=== PATIENT | female | born 1940 | race Caucasian/White ===

== ENCOUNTER 2020-11-20 13:57 | Inpatient (IN) | payer MEDICARE ==
[~2020-11-20 13:57] MED LIST: Iopamidol-370 76% 500 ML 1 ML ONE
[2020-11-20 14:56] LABS: Hemoglobin 10.8 g/dL (12.0-16.0); Mean Corpuscular HGB CONC 34.1 g/dL (32.0-36.0); Mean Corpuscular Hemoglobin 31.8 pg (27.0-31.0); Mean Corpuscular Volume 93.1 fL (78.0-98.0); Mean Platelet Volume 8.4 fL (7.4-10.4); Platelet Count 157 thou/uL (130-400); RBC Distribution Width 16.2 % (11.5-14.5); White Blood Cell (WBC) Count 22.2 thou/uL (4.8-10.8)
[2020-11-20 15:17] LABS: ALT (SGPT) 7 U/L (8-55); AST (SGOT) 12 U/L (5-34); Albumin 3.5 g/dL (3.4-4.8); Alkaline Phosphatase 84 U/L (40-110); Anion Gap 17 mmol/L (10-20); BUN (Urea Nitrogen) 53 mg/dL (9.8-20.1); Bilirubin, Total 1.1 mg/dL (0.2-1.2); Calc. Creatinine Clearance 0 mL/min (70-130); Calcium 9.2 mg/dL (7.8-10.44); Carbon Dioxide 23 mmol/L (23-31); Chloride 101 mmol/L (98-107); Globulin 2.7 g/dL (2.4-3.5); Glucose 110 mg/dL (83-110); Potassium 4.4 mmol/L (3.5-5.1); Protein, Total 6.2 g/dL (5.8-8.1); Sodium 137 mmol/L (136-145)
[2020-11-20 15:21] LABS: Band 18 % (5-11); Lymphocytes 2 % (21-51); MDiff Complete? YES; Monocytes 8 % (0-10); Neutrophil 72 % (42-75); Platelet Morphology Comment Appears Adequate; Polychromasia SLIGHT = 2-3 cells (100X) (0-2/hpf)
[2020-11-20] MEDS ORDERED: Cefepime 2 GM VIAL ONE (15:38)
[2020-11-20] MEDS ORDERED: Vancomycin 1.5 GRAM/300 ML BAG 1.5 GM in Premix Bag 1 BAG IVPB SCH (18:00)
[2020-11-20] MEDS ORDERED: Acetaminophen 325 MG TAB PO PRN (20:26)
[2020-11-20] MEDS ORDERED: Ondansetron PF 4 MG/2 ML Vial IVP PRN (20:26)
[2020-11-21 00:04] LABS: Bilirubin Negative (Negative); Blood, Urine 2+ (Negative); Clarity Clear (Clear); Glucose, Urine (Dipstick) Normal (Negative); Ketone, Urine 10 mg/dL (Negative); Leukocyte 250 Leu/uL (Negative); Mucous/LPF Rare LPF (<2+); Nitrite Negative (Negative); Protein, Urine (Dipstick) 50 mg/dL (Neg-Trace); Urobilinogen Normal mg/dL (Less than 2); WBC/HPF 21-50 HPF (0-3)
[2020-11-21 00:07] LABS: Bacteria/HPF 1+ HPF (None Seen); Specific Gravity, Urine 1.047 (1.002-1.036)
[2020-11-21 01:49] VITALS: BMI 25.9
[2020-11-21] MEDS: Sodium Chloride 0.9% 1,000 ML IV SCH ×2 (03:12→16:14)
[2020-11-21 04:20] LABS: #Lymphocytes 0.4 thou/uL (1.20-3.40); #Monocytes 0.9 thou/uL (0.11-0.59); #Neutrophils 13.3 thou/uL (1.40-6.50); %Eosinophils 0.1 % (0.0-10.0); %Monocytes 6.2 % (0.0-10.0); %Neutrophils 90.8 % (42.0-75.0); Hemoglobin 8.4 g/dL (12.0-16.0); Mean Corpuscular HGB CONC 33.1 g/dL (32.0-36.0); Mean Corpuscular Hemoglobin 31.1 pg (27.0-31.0); Mean Corpuscular Volume 93.9 fL (78.0-98.0); Mean Platelet Volume 8.8 fL (7.4-10.4); Platelet Count 130 thou/uL (130-400); RBC Distribution Width 15.9 % (11.5-14.5); Red Blood Cell (RBC) Count 2.68 mill/uL (4.20-5.40); White Blood Cell (WBC) Count 14.7 thou/uL (4.8-10.8)
[2020-11-21 04:45] LABS: ALT (SGPT) Less than 7 U/L (8-55); AST (SGOT) 10 U/L (5-34); Albumin 2.7 g/dL (3.4-4.8); Alkaline Phosphatase 61 U/L (40-110); Anion Gap 14 mmol/L (10-20); BUN (Urea Nitrogen) 54 mg/dL (9.8-20.1); Bilirubin, Total 0.6 mg/dL (0.2-1.2); Calc. Creatinine Clearance 36 mL/min (70-130); Calcium 8.9 mg/dL (7.8-10.44); Carbon Dioxide 20 mmol/L (23-31); Chloride 106 mmol/L (98-107); Globulin 2.8 g/dL (2.4-3.5); Glucose 84 mg/dL (83-110); Potassium 3.7 mmol/L (3.5-5.1); Protein, Total 5.5 g/dL (5.8-8.1); Sodium 136 mmol/L (136-145)
[2020-11-21] MEDS ORDERED: Albuterol 200 PUFF (6.7GM INHALER) INH PRN (11:00)
[2020-11-21] MEDS ORDERED: Levothyroxine Sodium 125 MCG TAB PO SCH (11:00)
[2020-11-21] MEDS ORDERED: Non-Formulary Item 1 EACH (Levothyroxine Sodium [Synthroid] 137 MCG Tablet) PO SCH (11:00)
[2020-11-21 12:49] LABS: SARS-CoV-2 PCR by NAA Not Detected (NotDetected)
[2020-11-21] MEDS: Levothyroxine Sodium 125 MCG TAB PO SCH (12:58)
[2020-11-21] MEDS: Cefepime 1 GM in Sodium Chloride 0.9% 100 ML IVPB SCH (16:14)
[2020-11-21] MEDS: Vancomycin HCl 750 MG in Sodium Chloride 0.9% 250 ML 250 ML IVPB SCH (18:09)
[2020-11-21] MEDS ORDERED: Apixaban 5 MG TAB PO SCH (21:00)
[2020-11-22] MEDS: Sodium Chloride 0.9% 1,000 ML IV SCH (05:33)
[2020-11-22] MEDS: Levothyroxine Sodium 125 MCG TAB PO SCH (05:33)
[2020-11-22 10:53] LABS: #Lymphocytes 0.3 thou/uL (1.20-3.40); #Monocytes 0.7 thou/uL (0.11-0.59); #Neutrophils 9.9 thou/uL (1.40-6.50); %Eosinophils 0.1 % (0.0-10.0); %Lymphocytes 3.2 % (21.0-51.0); %Monocytes 6.2 % (0.0-10.0); %Neutrophils 90.6 % (42.0-75.0); Hemoglobin 7.6 g/dL (12.0-16.0); Mean Corpuscular HGB CONC 32.1 g/dL (32.0-36.0); Mean Corpuscular Hemoglobin 30.4 pg (27.0-31.0); Mean Corpuscular Volume 94.5 fL (78.0-98.0); Mean Platelet Volume 8.1 fL (7.4-10.4); Platelet Count 156 thou/uL (130-400); RBC Distribution Width 16.1 % (11.5-14.5); Red Blood Cell (RBC) Count 2.52 mill/uL (4.20-5.40); White Blood Cell (WBC) Count 10.9 thou/uL (4.8-10.8)
[2020-11-22] MEDS: Cefepime 1 GM in Sodium Chloride 0.9% 100 ML IVPB SCH (16:43)
[2020-11-22 17:35] LABS: Vancomycin, Trough 12.3 ug/mL
[2020-11-22] MEDS: Vancomycin HCl 750 MG in Sodium Chloride 0.9% 250 ML 250 ML IVPB SCH (19:19)
[2020-11-22] MEDS: Mometasone 200 MCG/Formoterol 5 MCG 120 PUFF INHALER INH SCH (19:38)
[2020-11-22] MEDS ORDERED: Vancomycin 1 GM in Premix Bag 1 BAG IVPB SCH (20:00)
[2020-11-23] MEDS: Levothyroxine Sodium 125 MCG TAB PO SCH (05:05)
[2020-11-23 08:10] VITALS: BP 133/65; TEMP 98.3
[2020-11-23] MEDS: Mometasone 200 MCG/Formoterol 5 MCG 120 PUFF INHALER INH SCH (09:59)
[2020-11-24] MEDS ORDERED: Levothyroxine Sodium 112 MCG TAB PO SCH (06:00)
[2020-11-24] MEDS ORDERED: Levothyroxine Sodium 25 MCG TAB PO SCH (06:00)
== END 2020-11-23 18:20 | disposition home or self-care (01) | DRG 181 ==
LOC: ERS 13:57 → ONC 17:23
PROVIDERS: ADMIT Internal Medicine; ATTEND Internal Medicine
DX: C78.02 Secondary malignant neoplasm of left lung (principal); N17.9 Acute kidney failure, unspecified; J44.1 Chronic obstructive pulmonary disease with (acute) exacerbation; C78.01 Secondary malignant neoplasm of right lung; Z20.822 Contact with and (suspected) exposure to COVID-19; C54.1 Malignant neoplasm of endometrium; N18.30 Chronic kidney disease, stage 3 unspecified; I12.9 Hypertensive chronic kidney disease with stage 1 through stage 4 chronic kidney disease, or unspecified chronic kidney disease; E03.9 Hypothyroidism, unspecified; Z90.710 Acquired absence of both cervix and uterus; Z88.5 Allergy status to narcotic agent; Z88.0 Allergy status to penicillin; Z88.8 Allergy status to other drugs, medicaments and biological substances; Z86.711 Personal history of pulmonary embolism; Z79.01 Long term (current) use of anticoagulants; Z87.891 Personal history of nicotine dependence
CPT/HCPCS: 36415; 71045; 71275; 80053; 80202; 81003; 81015; 83605; 83880; 84484; 85025; 87040; 87086; 93005; 94640; 96365; 96366; 96367; J0692; J3370; J3490; J7050; J7620; Q9967; U0003; U0005